=== PATIENT | female | born 2000 | race Two or more races ===

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

== ENCOUNTER 2024-08-02 14:22 | Emergency (ER) | payer MEDICAID ==
[~2024-08-02] VITALS: Ht 172.7 cm; Wt 77.5 kg
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
[2024-08-02 15:42] LABS: Basophils # (auto) 0 10 ^3/uL (0-0.2); Basophils % (auto) 0.7 % (0.0-2.0); Eosinophils # (auto) 0 10 ^3/uL (0-0.8); Eosinophils % (auto) 0.5 % (0.0-7.0); Hematocrit 41.8 % (36.0-46.0); Hemoglobin 13.9 g/dL (12.2-16.2); Lymphocytes # (auto) 2.1 10 ^3/uL (0.4-5.4); Lymphocytes % (auto) 30.9 % (10.0-50.0); Mean Corpuscular Hemoglobin 27.1 pg (28.0-32.0); Mean Corpuscular Hgb Conc. 33.2 g/dL (32.0-36.0); Mean Corpuscular Volume 81.5 fL (80.0-100.0); Monocytes # (auto) 0.4 10 ^3/uL (0-1.3); Monocytes % (auto) 5.5 % (0.0-12.0); Neutrophils # (auto) 4.2 10 ^3/uL (1.6-8.6); Neutrophils % (auto) 62.4 % (37.0-80.0); Nucleated Red Blood Cells % 0.1 %; Platelet Count (auto) 279 10^3/uL (140-450); Red Blood Cells 5.13 10^6/uL (4.0-5.20); White Blood Cell 6.8 10^3/uL (4.4-10.8)
[2024-08-02 15:53] LABS: Chloride 107 mmol/L (98-107); Potassium 4.2 mmol/L (3.5-5.1); Sodium 140 mmol/L (136-145)
[2024-08-02 15:54] LABS: Anion Gap 6 (5-15); Carbon Dioxide 27 mmol/L (20-31)
[2024-08-02 15:54] LABS: Urine Bacteria None Seen /hpf (None Seen)
[2024-08-02 15:59] LABS: BUN/Creatinine Ratio 15.7 (10.0-20.0); Blood Urea Nitrogen 14 mg/dL (9-23); Glucose 87 mg/dL (74-106)
[2024-08-02 16:00] LABS: Calcium 10.5 mg/dL (8.7-10.4)
[2024-08-02 16:22] LABS: Urine Blood Negative /uL (Negative); Urine Clarity Clear (Clear); Urine Color Colorless (Yellow); Urine Protein, UAD Negative (Negative); Urine Specific Gravity 1.003 (1.001-1.035); Urine Squamous Epithelial Cell FEW /hpf (<5); Urine Urobilinogen Normal (Negative); Urine WBC 9 /HPF (0-5); Urine pH 6.5 (5.0-9.0)
--- NOTE | 2024-08-02 16:34 | DVH ---
Indication: right flank pain Technique: CT axial images of the abdomen and pelvis are obtained without contrast. Coronal and sagit alexis reformats were obtained. Radiation Dose Information: CTDI volume is 13 mGy. Dose-length product is 643 mGy*cm Comparison: None FINDINGS: There is limited interpretation of the abdomen and pelvis without administration of intravenous contr ast. Lung bases demonstrate no pleural effusion. Adrenal glands, spleen, pancreas, liver unremarkable in shape. No CT evidence for cholelithiasis. There is no hydronephrosis/ nephrolithiasis. Stomach is partially distended. Small bowel loops demonstrate fecal like contents within the mid to d istal segments. Large volume stool throughout the colon. There are no secondary signs for appendicitis. Bladder is partially distended. No free pelvic fluid. No inguinal lymphadenopathy. No aggressive osseous process. IMPRESSION: 1. Large volume of stool throughout the colon suggesting constipation. 2. Fecal like contents within the small bowel which can be seen with ileus, hypomotility, bowel obstr uction. 3. No hydronephrosis/ nephrolithiasis 4. Other findings as described.
[2024-08-02] MEDS: SODIUM CHLORIDE 0.9% 1,000 ML IVB ONE (17:25)
[2024-08-02] MEDS: MORPHINE SULFATE 4 MG/ML SYR/VIAL IV ONE (17:26)
[2024-08-02] MEDS: ONDANSETRON HCL 4 MG/2 ML VIAL IV ONE (17:26)
[2024-08-02 18:24] VITALS: TEMP 98.3; O2SAT 97
[2024-08-02 18:29] VITALS: BP 109/75; RESP 20
[2024-08-02] MEDS ORDERED: CIPR-173 PO (18:50)
[2024-08-02] MEDS ORDERED: HYDR-4902 PO (18:50)
[2024-08-02 18:54] VITALS: PULSE 76
[2024-08-02] MEDS ORDERED: cefTRIAXone 1GM/50ML D5W 50 ML IV ONE (19:00)
== END 2024-08-02 19:01 | disposition home or self-care (01) ==
LOC: ER 14:22
DX: O23.41 Unspecified infection of urinary tract in pregnancy, first trimester (principal); O26.891 Other specified pregnancy related conditions, first trimester; R10.2 Pelvic and perineal pain; R53.1 Weakness; Z3A.01 Less than 8 weeks gestation of pregnancy; Z98.890 Other specified postprocedural states
CPT/HCPCS: 36415; 74176; 80048; 81001; 84702; 85025; 96361; 96374; 96375; 99285; J2270; J2405; J7030